=== PATIENT | male | born 1990 | race Caucasian/White ===

== ENCOUNTER 2019-04-14 10:54 | Emergency (ER) | payer SELFPAY ==
[2019-04-14] MEDS ORDERED: LEVALBUTEROL 1.25 MG/3 ML NEB ONE (11:11)
[2019-04-14] MEDS ORDERED: METHYLPREDNISOLONE 125 MG INJ ONE (11:11)
[2019-04-14] MEDS ORDERED: NA CHLORIDE 0.9% 1,000 ML ONE (11:12)
[2019-04-14] MEDS ORDERED: FAMOTIDINE 20 MG/2 ML VIAL IV ONE (11:12)
[2019-04-14] MEDS ORDERED: DIPHENHYDRAMINE 50 MG/ML VIAL ONE (11:12)
[2019-04-14 11:46] LABS: Urine Blood 1+ (NEG); Urine Glucose NEGATIVE (NEG); Urine Protein NEGATIVE (NEG); Urine pH 6.5 (5.0-7.0)
--- NOTE | 2019-04-14 12:32 | EDPHYS ---
Physician Documentation [facility] Name: Omar Flowers Age: 29 yrs Sex: Male : 1990 Arrival Date: 04/14/2019 Time: 10:55 Bed 4 Private MD: ED Physician Fady Boykin HPI: 04/14 11:25 This 29 yrs old Male presents to ER via Ambulatory with complaints of rn Allergic Reaction. 11:25 The patient presents with itching, rash. Onset: The symptoms/episode began/occurred rn just prior to arrival. Severity of symptoms: At their worst the symptoms were moderate in the emergency department the symptoms are unchanged. The patient has not experienced similar symptoms in the past. The patient has not recently seen a physician. Reports at work, in water, no bite or sting, reported itching and rash, no fever, no trouble breathing, reports worse around face. Has never happened before and no new exposures that he knows of. . Historical: - Allergies: 11:03 No Known Allergies; iw - Home Meds: 11:03 None [Active]; iw - PMHx: 11:03 None; iw - PSHx: 11:03 Tonsillectomy; ear; iw - Immunization history:: Adult Immunizations. - Social history:: Smoking status: . - Ebola Screening: : Patient negative for fever greater than or equal to 101.5 degrees Fahrenheit, and additional compatible Ebola Virus Disease symptoms Patient denies exposure to infectious person Patient denies travel to an Ebola-affected area in the 21 days before illness onset No symptoms or risks identified at this time. - Family history:: not pertinent. - Hospitalizations: : No recent hospitalization is reported. ROS: 11:25 Constitutional: Negative for fever, chills, and weight loss, Eyes: + periorbital eye rn swelling Cardiovascular: Negative for chest pain, palpitations, and edema, Respiratory: Negative for shortness of breath, cough, wheezing, and pleuritic chest pain, Abdomen/GI: Negative for abdominal pain, nausea, vomiting, diarrhea, and constipation, Back: Negative for injury and pain, MS/Extremity: Negative for injury and deformity, Skin: + diffuse rash Neuro: Negative for headache, weakness, numbness, tingling, and seizure. Exam: 11:25 Constitutional: This is a well developed, well nourished patient who is awake, alert, rn appears anxious and erythematous Head/Face: Normocephalic, atraumatic. Eyes: + mild periorbital edema ENT: NO stridor, MMM, no tongue or uvula swelling Respiratory: No increased work of breathing, no retractions or nasal flaring. Skin: + diffuse erythemand urticaria, no skin sloughing, no signs of bite MS/ Extremity: Pulses equal, no cyanosis. Neurovascular intact. Full, normal range of motion. Equal circumference. Neuro: Awake and alert, GCS 15, oriented to person, place, time, and situation. Cranial nerves II-XII grossly intact. Motor strength 5/5 in all extremities. Sensory grossly intact. Cerebellar exam normal. Normal gait. Vital Signs: 11:03 BP 126 / 92; Pulse 71; Resp 18 S; Temp 98(TE); Pulse Ox 98% on R/A; Weight 70.31 kg tw2 (R); Height 6 ft. 0 in. (182.88 cm); Pain 0/10; 11:39 BP 137 / 80; Pulse 57; Resp 17; Pulse Ox 99% on R/A; tw2 12:50 BP 120 / 66; Pulse 72; Resp 17; Pulse Ox 99% on R/A; tw2 11:03 Body Mass Index 21.02 (70.31 kg, 182.88 cm) tw2 MDM: 10:56 Patient medically screened. rn 12:31 Differential diagnosis: urticaria. Data reviewed: vital signs, nurses notes, and as a rn result, I will discharge patient. Counseling: I had a detailed discussion with the patient and/or guardian regarding: the historical points, exam findings, and any diagnostic results supporting the discharge/admit diagnosis, the need for outpatient follow up, to return to the emergency department if symptoms worsen or persist or if there are any questions or concerns that arise at home. Response to treatment: the patient's symptoms have markedly improved after treatment, and as a result, I will discharge patient. Special discussion: I discussed with the patient/guardian in detail that at this point there is no indication for admission to the hospital. It is understood, however, that if the symptoms persist or worsen the patient needs to return immediately for re-evaluation. 04/14 11:27 Order name: Urine Dipstick--Ancillary (enter results); Complete Time: 11:57 bd 04/14 10:57 Order name: IV Start; Complete Time: 11:05 rn Administered Medications: 11:05 Drug: NS 0.9% 1000 ml Route: IV; Rate: 1000 ml; Site: right antecubital; tw2 12:39 Follow up: Response: No adverse reaction; IV Status: Completed infusion; IV Intake: tw2 1000ml 12:51 Follow up: Response: No adverse reaction; IV Status: Completed infusion; IV Intake: tw2 1000ml 11:05 Drug: Xopenex 1.25 mg Route: Inhalation; tw2 11:07 Drug: Pepcid 20 mg Route: IVP; Site: right antecubital; tw2 12:38 Follow up: Response: No adverse reaction tw2 11:09 Drug: SOLU-Medrol 125 mg Route: IVP; Site: right antecubital; tw2 12:38 Follow up: Response: No adverse reaction tw2 11:11 Drug: Benadryl 50 mg Route: IVP; Site: right antecubital; tw2 12:39 Follow up: Response: No adverse reaction tw2 Disposition: 04/14/19 12:31 Discharged to Home. Impression: Urticaria, unspecified, Acute allergic reaction. - Condition is Stable. - Discharge Instructions: Hives, Angioedema. - Prescriptions for Prednisone 20 mg Oral Tablet - take 3 tablet by ORAL route once daily for 5 days; 15 tablet. EpiPen 0.3 mg Injection auto- injector - inject 1 pen by INTRAMUSCULAR route one time As needed Inject into the outer portion of the thigh, through clothing if necessary. Indicated in the emergency treatment of allergic reactions; 1 packet. - Medication Reconciliation Form, Thank You Letter, Antibiotic Education, Prescription Opioid Use form. - Follow up: Private Physician; When: As needed; Reason: Recheck today's complaints, Re-evaluation by your physician. - Problem is new. - Symptoms have improved. Signatures: Dispatcher [employer] Adrienne Persaud RN RN iw Nieto, Roman, MD MD rn Wise, Tara, RN RN tw2 Corrections: (The following items were deleted from the chart) 12:51 12:31 04/14/2019 12:31 Discharged to Home. Impression: Urticaria, unspecified; Acute tw2 allergic reaction. Condition is Stable. Discharge Instructions: Hives. Prescriptions for Prednisone 20 mg Oral Tablet - take 3 tablet by ORAL route once daily for 5 days; 15 tablet. and Forms are Medication Reconciliation Form, Thank You Letter, Antibiotic Education, Prescription Opioid Use. Follow up: Private Physician; When: As needed; Reason: Recheck today's complaints, Re-evaluation by your physician. Problem is new. Symptoms have improved. rn
--- NOTE | 2019-04-14 12:32 | ER ---
Nurse's Notes [facility] Name: Omar Flowers Age: 29 yrs Sex: Male : 1990 Arrival Date: 04/14/2019 Time: 10:55 Bed 4 Private MD: Diagnosis: Urticaria, unspecified;Acute allergic reaction Presentation: 04/14 11:00 Presenting complaint: Patient states: was working outside, working on house boat, had iw to do some work in the water, when he got out noticed a rash to face, spread to entire upper body, now having difficulty swallowing, chest pain. Transition of care: patient was not received from another setting of care. Onset: The symptoms/episode began/occurred 1 hour(s) ago. Anaphylaxis evaluation, chest pain. Onset of symptoms was April 14, 2019. Risk Assessment: Do you want to hurt yourself or someone else? Patient reports no desire to harm self or others. Initial Sepsis Screen: Does the patient meet any 2 criteria? No. Patient's initial sepsis screen is negative. Does the patient have a suspected source of infection? No. Patient's initial sepsis screen is negative. Care prior to arrival: None. 11:00 Method Of Arrival: Ambulatory iw 11:00 Acuity: DAVID 1 iw Historical: - Allergies: 11:03 No Known Allergies; iw - Home Meds: 11:03 None [Active]; iw - PMHx: 11:03 None; iw - PSHx: 11:03 Tonsillectomy; ear; iw - Immunization history:: Adult Immunizations. - Social history:: Smoking status: . - Ebola Screening: : Patient negative for fever greater than or equal to 101.5 degrees Fahrenheit, and additional compatible Ebola Virus Disease symptoms Patient denies exposure to infectious person Patient denies travel to an Ebola-affected area in the 21 days before illness onset No symptoms or risks identified at this time. - Family history:: not pertinent. - Hospitalizations: : No recent hospitalization is reported. Screenin:06 Abuse screen: Denies threats or abuse. Nutritional screening: No deficits noted. tw2 Tuberculosis screening: No symptoms or risk factors identified. Fall Risk None identified. Assessment: 11:06 General: Appears distressed, Behavior is anxious. Pain: Complains of pain in "hives all tw2 over". Neuro: Level of Consciousness is awake, alert, obeys commands, Oriented to person, place, time, situation. Cardiovascular: Heart tones S1 S2 Patient's skin is warm and dry. Respiratory: Reports labored breathing Airway is patent Respiratory effort is even, unlabored, Breath sounds are diminished bilaterally. GI: No signs and/or symptoms were reported involving the gastrointestinal system. Abdomen is flat, Bowel sounds present X 4 quads. : No signs and/or symptoms were reported regarding the genitourinary system. EENT: Eyes swelling and redness noted to b/l eyes and face. Derm: Rash noted that is raised, urticaria, on back, chest, abdomen, right arm and left arm. Musculoskeletal: Range of motion: intact in all extremities. 11:39 Reassessment: Patient appears in no apparent distress at this time. Patient and/or tw2 family updated on plan of care and expected duration. Pain level reassessed. Patient is alert, oriented x 3, equal unlabored respirations, skin warm/dry/pink. pt reports "throat isnt itching anymore and i feel like i am breathing better". Vital Signs: 11:03 BP 126 / 92; Pulse 71; Resp 18 S; Temp 98(TE); Pulse Ox 98% on R/A; Weight 70.31 kg tw2 (R); Height 6 ft. 0 in. (182.88 cm); Pain 0/10; 11:39 BP 137 / 80; Pulse 57; Resp 17; Pulse Ox 99% on R/A; tw2 12:50 BP 120 / 66; Pulse 72; Resp 17; Pulse Ox 99% on R/A; tw2 11:03 Body Mass Index 21.02 (70.31 kg, 182.88 cm) tw2 ED Course: 10:55 Patient arrived in ED. mr 10:56 Fady Boykin MD is Attending Physician. rn 11:00 Inserted saline lock: 18 gauge in right antecubital area, using aseptic technique. iw 11:02 Triage completed. iw 11:03 Arm band placed on. iw 11:06 Placed in gown. Bed in low position. Call light in reach. supervisor metal hanging on. Pulse ox tw2 on. NIBP on. 11:11 Kelsea Roblero RN is Primary Nurse. tw2 12:51 No provider procedures requiring assistance completed. IV discontinued, intact, tw2 bleeding controlled, No redness/swelling at site. Pressure dressing applied. Administered Medications: 11:05 Drug: NS 0.9% 1000 ml Route: IV; Rate: 1000 ml; Site: right antecubital; tw2 12:39 Follow up: Response: No adverse reaction; IV Status: Completed infusion; IV Intake: tw2 1000ml 12:51 Follow up: Response: No adverse reaction; IV Status: Completed infusion; IV Intake: tw2 1000ml 11:05 Drug: Xopenex 1.25 mg Route: Inhalation; tw2 11:07 Drug: Pepcid 20 mg Route: IVP; Site: right antecubital; tw2 12:38 Follow up: Response: No adverse reaction tw2 11:09 Drug: SOLU-Medrol 125 mg Route: IVP; Site: right antecubital; tw2 12:38 Follow up: Response: No adverse reaction tw2 11:11 Drug: Benadryl 50 mg Route: IVP; Site: right antecubital; tw2 12:39 Follow up: Response: No adverse reaction tw2 Intake: 12:39 IV: 1000ml; Total: 1000ml. tw2 12:51 IV: 1000ml; Total: 2000ml. tw2 Outcome: 12:31 Discharge ordered by . rn 12:51 Discharged to home ambulatory, with friend. tw2 12:51 Condition: stable 12:51 Discharge instructions given to patient, friend, Instructed on discharge instructions, follow up and referral plans. medication usage, Demonstrated understanding of instructions, follow-up care, medications, Prescriptions given X 2. 12:51 Patient left the ED. tw2 Signatures: Evelyn Rodriguez Irene, RN RN Fady Boykin MD MD rn Wise, Tara, RN RN tw2 Corrections: (The following items were deleted from the chart) 11:40 11:03 BP 126 / 92; Pulse 71bpm; Resp 18bpm; Spontaneous; Pulse Ox 98% RA; iw tw2
== END 2019-04-14 12:51 | disposition home or self-care (01) ==
LOC: ER 10:54
DX: L50.9 Urticaria, unspecified (principal); T78.40XA Allergy, unspecified, initial encounter
CPT/HCPCS: 81003; 96361; 96374; 96375; 99291; 99292; J2930; J7030